=== PATIENT | male | born 1970 | race Caucasian/White ===

== ENCOUNTER → 2021-08-11 11:55 | Outpatient (BNVA) | payer SELFPAY | PROVIDERS: Family Provider Nurse Practitioner; PCP Nurse Practitioner; Visit Provider Emergency Medicine | DX: R07.89 Other chest pain (principal); Z82.49 Family history of ischemic heart disease and other diseases of the circulatory system; R53.83 Other fatigue; R06.02 Shortness of breath; F17.200 Nicotine dependence, unspecified, uncomplicated | CPT/HCPCS: 71046; 80053; 80061; 83880; 84443; 85025 ==

== ENCOUNTER → 2023-07-06 12:50 | Outpatient (BNVA) | payer SELFPAY | PROVIDERS: Visit Provider Nurse Practitioner Family | DX: M47.892 Other spondylosis, cervical region (principal); M54.2 Cervicalgia; G89.29 Other chronic pain | CPT/HCPCS: 72040 ==

== ENCOUNTER → 2023-09-27 15:56 | Outpatient (BNVA) | payer OTHER, SELFPAY | PROVIDERS: Visit Provider Emergency Medicine | DX: R10.9 Unspecified abdominal pain (principal) | CPT/HCPCS: 80053; 83690; 85025 ==

== ENCOUNTER → 2024-03-30 12:35 | Outpatient (BNVA) | payer OTHER, SELFPAY | DX: E78.5 Hyperlipidemia, unspecified (principal); R42 Dizziness and giddiness | CPT/HCPCS: 80053; 80061; 84443; 85025 ==